=== PATIENT | male | born 1940 | race Caucasian/White ===

== ENCOUNTER 2018-07-13 09:00 | Outpatient (RCR) | payer SELFPAY ==
--- NOTE | 2018-05-02 10:54 | HP.PTEVAL ---
Patient's Visit Information LONNIE PIERCE is a 77 year old M referred to Physical Therapy by PETE GARNER with a diagnosis of Antalgic lean. Date of Evaluation: 05/02/18 Physical Therapist: Maik Reinoso DPT, [place] - Visit Plan Frequency: Monthly Duration: 3-4 visits Plan: 3-4 visits to instruct and progress HEP for bimochanical deficits possibly leaning to FW lean. Taught today bridging, supermans, PPU, and hip flexor stretch. Next session monitor improvement and check L/S ext, hip flexoibllity and subjective. Plan to progress to quad stretch, increase core strength(row, quadruped reaches) and clamshells. - Subjective Subjective: I got a crooked back. Worked at [employer] 15 years in [email or web address] bending a whole lot. Noticed increased crooked back about 4 years ago and he could not lift doors . Has never had any pain. Been crooked for about 4 years. Slowly worsening. It makes it hard to lift anything in front of him. he was holding a 40# bag infront of him and felt like he was going to vomit. Sleeps is OK. 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 Basic ADLs are good. HEP is jumping on a rebounder. - Objective Walks back to PT I and is hunched over after about 3-4 steps in the sagittal plane. Can correct to perfectly straight stance but hunches within 3-4 steps approx 20 degrees. Walks I with good balance today. Transition I. L/S AROM very stiff in ext ension to about 7 degrees., SB symmetrically stiff at about 15 degrees. Flexion is slow but full. Hip ext AROM to 5 degrees B. Hip flexors and quads max tight. Back extensors 3/5 strength. No pain. reflexes 2/3 patella and achilles. Sensation WNL to gross light touch in LE. LE strength 4+/5 in knees adn ankles adn 4/5 in post/lateral hips. Feels tight in tummy when attempting to extend L/S - Goals Goal 1:: Pt is I in appropriate ex to help him satisfactorily address his condition. Goal Time Frame: 4-6 Weeks Goal 2:: Pt feel like he is up tall and able to walk 50% improved Goal Time Frame: 4-6 Weeks Goal 3:: Pt able to walk 200 feet without forward lean. 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 Rehabilitation Potential: Questionable - Anticipated Interventions Patient/Client Instruction: Educate patient on: Condition, Plan of Care For the Purpose of:: To improve gait and locomotor functions Therapeutic Exercise to Include: Strength training, Flexibilty training, Passive ROM, Active ROM For the Purpose of:: To improve gait and locomotor functions Thank you for the opportunity to evaluate your patient. For Medicare and Medicare HMO plans, please review the plan of care and approve it. It will need to be FAXED BACK to us at [phone] for Medicare purposes. Please let me know if there are questions or concerns regarding this plan of care. Physician Signature: Date:
--- NOTE | 2018-07-13 09:51 | HP.PTDCSUM ---
HP - PT D/C Summary It has been my pleasure to treat LONNIE PIERCE under orders from PETE GARNER, for the diagnosis of Antalgic lean for a total of 3 visit(s). Discharge Date: 07/13/18 Please see the following information for a summary of their discharge status. - Subjective Subjective: Hanging in there. Exercises are OK but not helping. No pain. Getting them in at least every day lately, they are hard but not painful. No follow up scheduled with doctor. Walks with two sticks which does help him stay up taller. - Overall Improvement % Improvement: 0 - Objective Objective/Function: Patient able to stand u ptall with tactile and verbal cues but functionally hunches over as soos as focus is lifted from cues or exercises. - Goals Goal 1:: Pt is I in appropriate ex to help him satisfactorily address his condition. Goal Progress: Not Progressing Goal 2:: Pt feel like he is up tall and able to walk 50% improved Goal Progress: Not Progressing Goal 3:: Pt able to walk 200 feet without forward lean. Goal Progress: only with cues - Plan Plan: D/C, - D/C Information Discharge Comments: Pt can stand up tall posturally but functionally loses this posture immediately. I have shown him strength adn stretches fro home which he is I with. 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 He will f/u with doctor if these exercises do not help satisfactorily in the next 4-6 weeks. If there are questions or concerns regarding this patient's physical therapy, please feel free to call me at [phone]. Thank you for the referral of this patient. Sincerely, Maik Reinoso, DPT, [place]
== END 2018-07-13 19:00 | disposition home or self-care (01) ==
LOC: PT 09:00
DX: R29.3 Abnormal posture (principal)
CPT/HCPCS: 97110; 97162; 97530